=== PATIENT | female | born 1965 | race Caucasian/White ===

== ENCOUNTER → 2024-08-01 | Outpatient (CLI) | payer OTHER ==
--- NOTE | 2024-08-01 15:04 | XR ---
EXAMINATION TYPE: XR shoulder limited RT DATE OF EXAM: 08/01/2024 2:57 PM INDICATION: Patient age:Female; 59 years old; Reason for study: M16.9, M51.369; pain COMPARISON: None TECHNIQUE: The right shoulder was examined in AP and scapular Y projections. . FINDINGS: No acute fracture or dislocation. No osteophytosis or joint space narrowing. No soft tissue swelling. The remaining portions of the visualized chest are unremarkable. IMPRESSION: No acute osseous pathology. [facility], , 08/01/2024 3:02 PM
--- NOTE | 2024-08-01 15:09 | XR ---
EXAMINATION TYPE: XR hand limited RT DATE OF EXAM: 08/01/2024 2:57 PM INDICATION: Patient age:Female; 59 years old; Reason for study: M16.9, M51.369; H. pain COMPARISON: None TECHNIQUE: Frontal and lateral views of the right hand were obtained. FINDINGS: Normal alignment of the visualized joints. No acute osseous pathology is identified. Well -corticated curvilinear ossific density lateral to the first interphalangeal joint. No evidence of so ft tissue swelling. IMPRESSION: 1. No acute osseous pathology. 2. Ossific density adjacent to the lateral first interphalangeal joint probably representing a remot e avulsion fracture. [facility], , 08/01/2024 3:06 PM
== END | disposition home or self-care (01) ==
LOC: RADXRMAIN 14:38
PROVIDERS: ATTEND Family Medicine
DX: M89.8X4 Other specified disorders of bone, hand (principal); M25.511 Pain in right shoulder